=== PATIENT | male | born 1985 | race Caucasian/White ===

== ENCOUNTER 2023-06-25 19:54 | Emergency (ER) | payer OTHER, SELFPAY ==
[2023-06-25 20:00] VITALS: BP 120/82; PULSE 86; RESP 16; TEMP 37.2; O2SAT 99; BMI 34.0
--- NOTE | 2023-06-25 20:04 | XR_ITS ---
The [address] [address] Patient Name: ARSLAN ARMSTRONG MRN: [id number] date: 1985 Sex: M Assigned Patient Location: ED.MAIN Current Patient Location: ED.MAIN Accession/Order Number: [id number] Exam Date: 06/25/2023 20:23 Report Date: 06/25/2023 20:57 At the request of: MARITO NIETO Procedure: XR wrist LT min 3V EXAM: XR wrist LT min 3V HISTORY: fall COMPARISON: None. TECHNIQUE: 3 views of the left wrist are performed. FINDINGS: There is no acute fracture. The bony structures are intact. Joint spaces are maintained. Unremarkable soft tissues. XR/XR wrist LT min 3V IMPRESSION: No acute bony abnormality. Electronically authenticated by: BAY WATSON Date: 06/25/2023 20:57
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
--- NOTE | 2023-06-25 20:21 | PC.NURSE ---
States hurts to move wrist to left.
== END 2023-06-25 20:52 | disposition home or self-care (01) ==
PROVIDERS: Emergency Provider Emergency Medicine
DX: S63.502A Unspecified sprain of left wrist, initial encounter (principal); V18.4XXA Pedal cycle driver injured in noncollision transport accident in traffic accident, initial encounter
CPT/HCPCS: 73110; 99283